=== PATIENT | female | born 1985 | race African-American/Black ===

== ENCOUNTER 2019-10-12 13:48 | Emergency (ER) | payer MEDICAID ==
[~2019-10-12] VITALS: Ht 165.1 cm; Wt 81.8 kg
[2019-10-12] MEDS ORDERED: CITA10TA68 PO (13:57)
[2019-10-12] MEDS ORDERED: ALBU8HFA IH (13:57)
[2019-10-12] MEDS ORDERED: LITH300C3 PO (13:57)
[2019-10-12] MEDS ORDERED: ACETAMINOPHEN 500 MG TABLET PO ONE (14:45)
[2019-10-12] MEDS ORDERED: ONDANSETRON HCL 4 MG TABLET PO ONE (14:45)
[2019-10-12 16:17] VITALS: BP 128/72
== END 2019-10-12 16:27 | disposition home or self-care (01) ==
LOC: EMS 13:53
DX: J11.1 Influenza due to unidentified influenza virus with other respiratory manifestations (principal); J45.909 Unspecified asthma, uncomplicated; F17.210 Nicotine dependence, cigarettes, uncomplicated
CPT/HCPCS: 99283; Q0162